=== PATIENT | male | born 2000 | race African-American/Black ===

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

== ENCOUNTER 2019-04-25 15:21 | Emergency (ER) | payer MEDICAID ==
[~2019-04-25] VITALS: Ht 165.1 cm; Wt 50.0 kg
[2019-04-25] MEDS ORDERED: AZITHROMYCIN 500 MG TABLET PO ONE (18:00)
[2019-04-25] MEDS ORDERED: CEFTRIAXONE SODIUM 250 MG/VIAL IM ONE (18:00)
[2019-04-25 18:21] VITALS: BP 115/85
== END 2019-04-25 18:21 | disposition home or self-care (01) ==
LOC: ER 15:58
DX: Z20.2 Contact with and (suspected) exposure to infections with a predominantly sexual mode of transmission (principal); Z72.51 High risk heterosexual behavior
CPT/HCPCS: 96372; 99283; J0696

== ENCOUNTER 2019-09-10 14:14 | Emergency (ER) | payer MEDICAID ==
[~2019-09-10] VITALS: Ht 160 cm; Wt 65.0 kg
[2019-09-10 14:26] VITALS: BP 142/61
== END 2019-09-10 17:32 | disposition left against medical advice (07) ==
LOC: ER 14:14
DX: Z53.21 Procedure and treatment not carried out due to patient leaving prior to being seen by health care provider (principal)